=== PATIENT | female | born 1985 | race Caucasian/White ===

== ENCOUNTER 2019-04-18 05:42 | Inpatient (IN) ==
--- NOTE | 2019-04-18 06:18 | PROVIDER DOCUMENTATION ---
HPI-Abdominal Pain/GI Problem - General Chief Complaint: UTI Symptoms Stated Complaint: ADULT GENERAL Time Seen by Provider: 04/18/19 06:01 Source: patient, family Allergies/Adverse Reactions: Patient Allergies Allergy/AdvReac Type Severity Reaction Status Date / Time No Known Allergies Allergy Verified 11/25/18 09:29 Home Medications: Home Medication List Medication Instructions Recorded Confirmed Last Taken Type Hydrochlorothiazide 12.5 mg PO DAILY 11/25/18 11/25/18 Unknown History Lisinopril 20 mg PO DAILY 11/25/18 11/25/18 Unknown History - History of Present Illness-ABD Nature of Presenting Problems: laying around about a week then noted yellow pigment itchy sob weak no iv drugs lots zantac Pain Radiation: reports: no radiation Quality of Pain: reports: pressure Severity in ED: reports: mild Onset/Duration: reports: 1 week ago Timing: reports: still present, getting worse Activities at Onset: reports: none Exposure to sick contacts?: No Modifying Factors: improves with: nothing Associated Symptoms: reports: heartburn, loss of appetite. denies: constipation, cough, fever/chills, genitourinary problems, nausea, swelling/mass in abdomen, syncope, vomiting Last BM: last night Dark Stools Present?: reports: other (green). denies: maroon, black, tarry, bright red blood Rectal Bleeding: reports: none # of Vomiting Episodes: 0 Bruising or Bleeding Gums?: No Similar Symptoms Previously?: No Review of Systems - Adult - REVIEW OF SYSTEMS - ADULT Constitutional: reports: fatique. denies: chills, fever, night sweats, weight loss Eyes: reports: no symptoms reported Ears, Nose, Mouth & Throat: reports: no symptoms reported Cardiovascular: reports: no symptoms reported. denies: chest pain, edema, palpitations Respiratory: reports: shortness of breath. denies: cough, hemoptysis, wheezing Gastrointestinal: reports: frequent heartburn, nausea, poor appetite, vomiting. denies: abdominal pain, hematemesis, constipation, diarrhea, difficulty swallowing Genitourinary: reports: no symptoms reported Musculoskeletal: reports: no symptoms reported Integumentary: reports: no symptoms reported Neurological: reports: no symptoms reported Psychiatric: reports: no symptoms reported Past History - Adult - PAST MEDICAL HISTORY-ADULT Review of Records: reports: Nursing Assessment Review, Medications Reviewed, Social history reviewed & non-contributory. Cardiovascular: reports: denies history, HTN Respiratory: denies: asthma, bronchitis, COPD, sleep apnea, tuberculosis Gastrointestinal: reports: GERD. denies: cholelithiasis, Crohn's, colitis, diverticulosis, hepatitis, hemorrhoids, inflammatory bowel disease, liver disease, pancreatitis, polyps Genitourinary: reports: denies history Musculoskeletal: reports: denies history Neurological: reports: denies history Psychiatric: reports: denies history Endocrine/Immune: reports: denies history. denies: Diabetes, thyroid disorder - PRIOR SURGERIES/PROCEDURES Surgical/Procedure History: reports: , orthopedic (extremity) - IMMUNIZATION STATUS Childhood Immunizations: See Nurse Assessment Flu Vaccine: See Nurse Assessment - FAMILY HISTORY Family History: reviewed, not pertinent - SOCIAL HISTORY Smoking: cigarettes Substance Use: none/never Alcohol Use Frequency: never Physical Exam-General - PHYSICAL EXAM-ADULT Initial Vital Signs Reviewed: Yes - CONSTITUTIONAL General Appearance: mild distress - EYES Eyes: scleral icterus - HEAD, EARS, NOSE, MOUTH & THROAT HENMT: normocephalic/atraumatic - NECK Neck: full range of motion, supple - RESPIRATORY Respiratory: lungs clear - CARDIOVASCULAR Cardiovascular: regular rate, rhythm - GASTROINTESTINAL (ABDOMEN) Abdominal Exam: normal bowel sounds, non tender, soft - LYMPHATIC Lymphatic: no adenopathy - MUSCULOSKELETAL Back Exam: normal inspection, no CVA tenderness Extremity: normal range of motion, non-tender, normal gait - SKIN Integumentary: jaundice - NEUROLOGIC 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 - PSYCHIATRIC Psych/Mental Status: oriented x 3 Progress - PLAN OF CARE/RESULTS Progress/Plan/Lab Results: Vital Signs - 8 hr 04/18/19 05:50 Temperature 98.5 F Pulse Rate 95 H Respiratory Rate 20 Blood Pressure 164/109 O2 Sat by Pulse Oximetry 99 Orders Category Date Time Status Urine Preg [ED: Urine Bedside] NOW Care 04/18/19 05:57 Active URINALYSIS W/POSS RFLX CULT [URINALYSIS] Stat Lab 04/18/19 05:56 Uncollected Result Diagrams: 04/18/19 06:16 04/18/19 06:16 - ULTRASOUND (By Radiology) 1 US Study: Abdomen Impression: See EMR Report (EXAM: US ABDOMEN-COMPLETE - 04/18/2019 HISTORY: JAUNDICE TECHNIQUE: Ultrasound abdomen COMPARISON: None. FINDINGS: There are no abnormalities of the liver or spleen identified. Doppler image shows hepatopedal flow in the portal vein. There is no ascites seen. The gallbladder is contracted. The gallbladder ochoa appear thickened up to 1.4 cm, although this could be exaggerated by the contracted state. There are no gallstones identified. There is no pericholecystic fluid identified. The technologist reports negative sonographic Lindsey's sign. The common bile duct is normal caliber at 3 mm. The pancreas is partially obscured by bowel gas artifacts, but visualized portions of the pancreas are unremarkable. There are no abnormalities of the bilateral kidneys identified. Abdominal aorta and IVC appear normal caliber. IMPRESSION: Contracted gallbladder with substantially thickened ochoa. No evidence of gallstones or pericholecystic fluid. Electronically signed by Abrahan Schmidt 04/18/2019 8:25 AM) Departure - Departure Date of Disposition Decision: 04/18/19 Time of Disposition Decision: 09:20 DIAGNOSIS: Acute hepatitis, Hyperbilirubinemia Disposition: ADMITTED INPATIENT 09 Certified Medical Emergency: Emergent Condition: Fair Referrals and Follow-Ups: None,PCP [Primary Care Provider] - - Critical Care Note This patient required my direct & personal management of CC.: No Attestation - Physician/ SALENA Attestation Patient care was provided by Advanced Practice Provider:: No The physician spent face to face time with patient:: Yes Advanced Practice Provider documentation review:: Supervising physician onsite and consulted in the evaluation and care of this patient. The physician did have a face to face encounter with the patient.
[2019-04-18 07:21] LABS: AGAP 13; ALBUMIN 3.2 g/dL (3.5-5.0); ALKALINE PHOSPHATASE 420 U/L (32-104); BASO# 0.11 X1000 (0.0-0.2); BASO% 1.6 % (0.0-0.8); BUN 12 mg/dL (8-22); CALCIUM 8.8 mg/dL (8.8-10.2); CHLORIDE 101 mmol/L (98-107); COSMO 278; CREATININE 0.3 mg/dL (0.5-0.9); EOS# 0.04 X1000 (0.0-0.7); EOS% 0.6 % (0.0-10.0); ESTIMATED GFR > 60; GLUCOSE 138 mg/dL (70-104); GOT 859 U/L (10-30); HEMATOCRIT 39.8 % (37.0-47.0); HEMOGLOBIN 13.1 g/dL (12.0-16.0); IMM GRAN# 0.05 X1000 (0.0-0.04); IMM GRAN% 0.7 % (0.0-0.5); LYMPH# 2.12 X1000 (1.2-3.4); LYMPH% 30.9 % (20.5-51.1); MCH 29.4 PG (27-31); MCHC 32.9 g/dL (33-37); MCV 89.2 FL (81-99); MONO# 0.79 X1000 (0.11-0.59); MONO% 11.5 % (1.7-9.3); MPV 10.5 FL (7.4-10.4); NEUT# 3.76 X1000 (1.4-6.5); NEUT% 54.7 % (42.2-75.2); PLT 286 X1000 (130-400); POTASSIUM 3.7 mmol/L (3.5-5.1); RBC 4.46 XMIL (4.2-5.4); RDW 13.7 % (11.5-14.5); SODIUM 138 mmol/L (136-145); TCO2 24 mmol/L (25-35); TOTAL PROTEIN 7.3 g/dL (6.3-8.3); WBC 6.87 X1000 (4.8-10.8)
[2019-04-18 07:33] LABS: GPT 1546 U/L (10-36)
[2019-04-18 07:44] LABS: URINE SOURCE CLEAN CATCH
[2019-04-18 07:59] LABS: BILIRUBIN URINE LARGE (NEGATIVE); BLOOD URINE TRACE (NEGATIVE); CLARITY CLOUDY (CLEAR); COLOR AMBER; GLUCOSE URINE NEGATIVE (NEGATIVE); KETONE URINE TRACE mg/dL (NEGATIVE); PH URINE 6.5; PROTEIN URINE TRACE mg/dL (NEGATIVE); SP GRAVITY URINE 1.025; URINE BACTERIA 2+ /HFP; URINE CAST NONE SEEN /LPF; URINE CRYSTAL NONE SEEN /HPF; URINE EPITHELIAL CELLS <10 /HPF (<10); URINE WBC <10 /HPF (<10); URINE YEAST NONE SEEN /HPF
[2019-04-18 08:00] LABS: LEUKOCYTES URINE TRACE (NEGATIVE); NITRITE URINE POSITIVE (NEGATIVE)
--- NOTE | 2019-04-18 08:28 | Diag Imaging Result Doc PS360 ---
EXAM: US ABDOMEN-COMPLETE - 04/18/2019 HISTORY: JAUNDICE TECHNIQUE: Ultrasound abdomen COMPARISON: None. FINDINGS: There are no abnormalities of the liver or spleen identified. Doppler image shows hepatopedal flow in the portal vein. There is no ascites seen. The gallbladder is contracted. The gallbladder ochoa appear thickened up to 1.4 cm, although this could be exaggerated by the contracted state. There are no gallstones identified. There is no pericholecystic fluid identified. The technologist reports negative sonographic Lindsey's sign. The common bile duct is normal caliber at 3 mm. The pancreas is partially obscured by bowel gas artifacts, but visualized portions of the pancreas are unremarkable. There are no abnormalities of the bilateral kidneys identified. Abdominal aorta and IVC appear normal caliber. IMPRESSION: Contracted gallbladder with substantially thickened ochoa. No evidence of gallstones or pericholecystic fluid. Electronically signed by Abrahan Schmidt 04/18/2019 8:25 AM
[2019-04-18] MEDS ORDERED: ROCEPHIN 1 GM in NS 50 ML IV ONE (09:24)
[2019-04-18] MEDS ORDERED: NS 1,000 ML IV ONE (09:24)
[2019-04-18] MEDS ORDERED: ZOFRAN IV PRN ×2 (10:30→16:54)
[2019-04-18] MEDS ORDERED: ZOSYN 3.375 GM in NS 50 ML IV SCH (11:00)
[2019-04-18] MEDS: SODIUM CHLORIDE 0.9% INJ SCH (11:06)
[2019-04-18] MEDS: PROTONIX IV SCH (11:06)
[2019-04-18] MEDS: NS 1,000 ML IV SCH (11:06)
--- NOTE | 2019-04-18 11:36 | HISTORY AND PHYSICAL ---
PRIMARY CARE PHYSICIAN: None. CHIEF COMPLAINT: Weakness. HISTORY OF PRESENT ILLNESS: Ms. Yousif is a 33-year-old, female with past medical history of hypertension and tobacco dependency. The patient does present to the ER today with complaints of weakness, jaundice, pruritus, petechiae, nausea with a vomiting episode x1, jaundiced urine, and heartburn, where she has been having to take Tums and Zantac for the past 5 days. The patient stated that when she noticed that her pupils were very jaundiced, her decided to bring her to the ER at this time. Laboratory findings in the ER did show the patient to have a bilirubin of 10, AST 859, ALT of 1546, alkaline phosphatase of 420. Ultrasound of the gallbladder did show gallbladder wall thickened up to 1.4 cm with no apparent gallstones, no abnormalities of the liver, and no ascites. The patient does deny any fever, chills, or flu-like symptoms, cough, congestion, headache or vision changes, dizziness, neck pain, stiffness, excessive thirst, chest pain, palpitations, orthopnea, PND, leg edema, dyspnea, melena, hematemesis, diarrhea, constipation, dysuria, hematuria, syncope, numbness, or any other pertinent symptoms at this time. REVIEW OF SYSTEMS: A 10-point review of systems has been obtained, and all are negative, except what is stated above in the HPI. PAST MEDICAL HISTORY: 1. Hypertension. The patient is supposed to be taking lisinopril and hydrochlorothiazide. However, she states she has not taken any medication in the past 3 months. 2. Tobacco dependency. PAST SURGICAL HISTORY: 1. Carpal tunnel release x2. 2. Tonsillectomy. 3. Elbow surgery x2. 4. Left ankle surgery. 5. Three sections. FAMILY HISTORY: Father has diabetes and hypertension. Her mother has hypertension and a history of uterine cancer. She also has a sister that has hypertension. SOCIAL HISTORY: The patient does live in [place] with her and her 3 children. She does work as a business studio owner. She does smoke a half a pack of cigarettes per day, and she has for greater than 15 years. She denies any alcohol or illicit drug use. ALLERGIES: No known drug allergies. HOME MEDICATIONS: The patient is supposed to take lisinopril 10 mg daily and hydrochlorothiazide 12.5 mg daily. However, she has not taken any medications in greater than 2 months. PHYSICAL EXAMINATION: VITAL SIGNS: Temperature 97.9 degrees, pulse rate 70, respiratory rate 18, blood pressure 159/93, O2 saturation 100% on room air. GENERAL: This is a 33-year-old, female. She is lying in the ER stretcher. She is well nourished and well developed, in no acute distress. HEENT: Atraumatic, normocephalic. Pupils are jaundiced. They are equal and reactive to light. Mucous membranes are dry. NECK: Supple. No lymphadenopathy. Trachea is midline. There is no JVD. CARDIOVASCULAR: Regular rate and rhythm. No murmurs, gallops, or rubs appreciated. RESPIRATORY: Lung sounds are clear with equal chest excursion. Respirations are nonlabored. No accessory muscle usage. GI: Abdomen is soft. It is nontender, nondistended. Bowel sounds are present x4. Lindsey sign is negative. : There is no suprapubic tenderness noted. The patient is able to void without difficulty. NEUROLOGIC: The patient is awake, alert, and oriented x4. There are no deficits noted. MUSCULOSKELETAL: There is full distal strength noted. No abnormalities. No deformities. EXTREMITIES: No clubbing, no cyanosis, no edema. DP and PT pulses are present. SKIN: Warm, dry, and intact. There is petechiae noted all over the abdominal area and extremities. The patient is jaundiced all over, especially to the orbits. There is no bruising and no diaphoresis. LABORATORY AND DIAGNOSTIC DATA: White blood cell count 6.87, hemoglobin 13.1, hematocrit 39.8, platelet count 286,000. Sodium 138, potassium 3.7, BUN is 12, creatinine is 0.3, glucose is 138, calcium is 8.8. Total bilirubin is 10, AST is 859, ALT is 1546, alkaline phosphatase is 420. Plasma lactate is 1.2. Urinalysis does show protein, positive ketones, positive nitrates, a large amount of bilirubin. The microscopic does show red blood cells, white blood cells, positive bacteria 2+. Ultrasound of the abdomen does show gallbladder ochoa are thickened up to 1.4 cm. There are no gallstones identified. It does show a negative Lindsey sign. The common bile duct is normal caliber at 3 mm. It cannot identify the pancreas. It shows no abnormalities of the liver or spleen identified. ASSESSMENT: 1. Acute cholecystitis. 2. Transaminitis. 3. Hyperbilirubinemia. 4. Urinary tract infection. 5. Gastroesophageal reflux disease. 6. Hypertension. PLAN: Will admit this patient to the surgical floor. We will consult Surgery. We will start this patient on IV fluid hydration, normal saline at 75. We will start this patient on Zosyn. Will place this patient on nuclear monitoring technician. Keep this patient n.p.o. at this present time. Do vital signs routine. Supplemental O2. We will provide this patient with Zofran p.r.n. for antiemetics. Will start this patient on Protonix 40 mg IV every 24 hours. I will provide her with a nicotine patch daily. I have provided her with smoking cessation information. I will provide her with SCDs for DVT prophylaxis. I have ordered a hepatitis profile. I have ordered labs for in the morning. Urine culture and blood cultures have been obtained. We will await those results. All other further treatment pending hospital course and laboratory data. Dictated by SAMMY Robb for Rusty Thomas MD cc: Rusty Thomas MD MTDD
[2019-04-18] MEDS: NICODERM PATCH TD SCH (13:57)
[2019-04-18] MEDS ORDERED: DEMEROL IV ONE (15:44)
--- NOTE | 2019-04-18 17:24 | PROGRESS NOTE ---
DATE: 04/18/2019 SUBJECTIVE: I have seen and examined Ms. Yousif today. Ms. Yousif presented is a transfer from [place]. She went over there early today because of generalized weakness and fatigue. She was found to be extremely jaundiced at home so she went there for evaluation. She was seen and evaluated and transferred over here for higher level of care. OBJECTIVE: Vital signs: Blood pressure is 146/85, pulse of 76,respirations 16, temperature is 97.8 degrees. General: Ms. Yousif is a 34-year-old female. She is in bed in no distress. Mucosa is pink and moist. About 2 to 3+ icterus. Chest: Clear to auscultation. No crepitations. No rhonchi. Cardiovascular: Regular rate and rhythm. Gastrointestinal: Abdomen is soft, nontender. Bowel sounds present. Extremities: No pedal edema. PATENT EXAMINER: Patient is awake, alert, and oriented. Skin: Patient has multiple tattoos all over. LABORATORY DATA: CBC is completely within normal range. Chemistry also shows liver enzymes extremely elevated with ALT 1546. The ultrasound of the abdomen has been reviewed. ASSESSMENT: 1. Acute hepatocellular injury pattern concerning for a viral hepatitis. The patient's hepatitis panel has already been done. We will be pending the results. For now, we will continue to monitor and manage symptomatic. 2. Generalized weakness and fatigue most likely due to underlying acute hepatitis. 3. Contracted gallbladder on ultrasound. The patient denies any pain in the right upper quadrant WBC is fine. I do not think she has any acute cholecystitis. I have discontinued the antibiotics. cc: Kilo Altman MD
--- NOTE | 2019-04-18 19:11 | GENERAL SURGERY CONSULTATION ---
DATE: 04/18/2019 REQUESTING PRACTITIONER: SAMMY Robb CONSULTING SURGEON: Partha Akins MD REASON FOR CONSULTATION: Acute cholecystitis. HISTORY OF PRESENT ILLNESS: This is a 33-year-old female who presented to the hospital with a chief complaint of jaundice and weakness. The symptoms began several days ago without any abdominal pain, diarrhea or constipation, fever, weight loss, appetite change. She does have significant heartburn over the last few days and has had one episode of nausea and vomiting. She has never had any prior episodes like this. She denies any sick contacts, or travel out of the country. She denies any exposure to IV drug use. PAST MEDICAL HISTORY: Hypertension. HOME MEDICATIONS: She is currently not taking any but previously took lisinopril. PAST SURGICAL HISTORY: Reviewed and pertinent for sections. ALLERGIES: No known drug allergies. FAMILY HISTORY: Reviewed and notable for uterine cancer in her mother. SOCIAL HISTORY: She smokes several cigarettes. Denies alcohol or illicit drug use. REVIEW OF SYSTEMS: Positive for itching. Otherwise, 10 systems reviewed and negative except as noted above. PHYSICAL EXAMINATION: Vital Signs: Temperature 97.8 degrees, pulse 76, respirations 16, blood pressure 146/85, O2 saturation 100%. General: Well-developed, well-nourished male who appears somewhat ill but nontoxic. HEENT: Normocephalic, atraumatic. Extraocular muscles intact. Pupils equal, round, reactive to light. She does have scleral icterus. Mucous membranes look somewhat dry. Neck: Supple. No thyromegaly. Cardiovascular: Regular rate and rhythm. Respiratory: Bilateral equal breath sounds. No work of breathing. Gastrointestinal: Soft, nondistended. No organomegaly or mass. She is mildly tender in the right upper quadrant without rebound or guarding. She has a negative Lindsey sign. Extremities: No clubbing, cyanosis, or edema. Skin: Warm and dry. She is jaundiced. LABORATORY DATA: CBC and metabolic profile are reviewed and notable for total bilirubin of 10, AST 859, ALT 1546, alkaline phosphatase 420. IMAGING: An abdominal ultrasound shows a contracted gallbladder with wall thickening up to 1.4 cm; however, no gallstones, no pericholecystic fluid and a negative Lindsey sign. The common bile duct is also normal at 3 mm. ASSESSMENT AND PLAN: A 33-year-old female with painless jaundice, weakness and abnormal gallbladder imaging. Overall, I am most suspicious of viral hepatitis. This panel has been ordered and is pending. I do not believe she has acute cholecystitis given her history and physical exam findings. We will follow along. If the hepatitis panel is negative, then we would likely pursue other hepatobiliary and pancreatic imaging. cc: Partha Akins MD
[2019-04-18] MEDS: DEMEROL IV PRN (21:42)
[2019-04-19] MEDS: DEMEROL IV PRN ×3 (03:56→21:22)
[2019-04-19] MEDS: NS 1,000 ML IV SCH ×2 (04:12→14:30)
[2019-04-19 07:25] LABS: INR 0.98; PROTIME 13.1 Seconds (11.0-16.0)
[2019-04-19 07:31] LABS: BASO# 0.06 X1000 (0.0-0.2); BASO% 1.1 % (0.0-0.8); EOS# 0.14 X1000 (0.0-0.7); EOS% 2.6 % (0.0-10.0); HEMATOCRIT 36.1 % (37.0-47.0); HEMOGLOBIN 11.7 g/dL (12.0-16.0); IMM GRAN# 0.03 X1000 (0.0-0.04); IMM GRAN% 0.6 % (0.0-0.5); LYMPH% 37.3 % (20.5-51.1); MCH 28.9 PG (27-31); MCHC 32.4 g/dL (33-37); MCV 89.1 FL (81-99); MONO# 0.68 X1000 (0.11-0.59); MONO% 12.7 % (1.7-9.3); MPV 10.3 FL (7.4-10.4); NEUT# 2.45 X1000 (1.4-6.5); NEUT% 45.7 % (42.2-75.2); PLT 230 X1000 (130-400); RBC 4.05 XMIL (4.2-5.4); RDW 13.9 % (11.5-14.5); WBC 5.36 X1000 (4.8-10.8)
[2019-04-19 07:51] LABS: EOS 4 % (1-10); LYMPHS 32 % (21-51); SEGS 62 % (42-75)
[2019-04-19 07:59] LABS: AGAP 7; ALB/GLOB RATIO 0.7; ALBUMIN 2.6 g/dL (3.5-5.0); ALKALINE PHOSPHATASE 365 U/L (32-104); BUN 8 mg/dL (8-22); CALCIUM 7.7 mg/dL (8.8-10.2); CHLORIDE 105 mmol/L (98-107); COSMO 271; CREATININE 0.6 mg/dL (0.5-0.9); ESTIMATED GFR > 60; GLUCOSE 105 mg/dL (70-104); GOT 455 U/L (10-30); MAGNESIUM 1.9 mg/dL (1.5-2.7); POTASSIUM 3.6 mmol/L (3.5-5.1); SODIUM 136 mmol/L (136-145); TCO2 24 mmol/L (25-35); TOTAL BILIRUBIN 6.64 mg/dL (0.20-1.00); TOTAL PROTEIN 6.1 g/dL (6.3-8.3)
[2019-04-19 08:19] LABS: GPT 942 U/L (10-36)
[2019-04-19] MEDS: SODIUM CHLORIDE 0.9% INJ SCH (08:58)
[2019-04-19] MEDS: PROTONIX IV SCH ×2 (08:58→18:56)
[2019-04-19] MEDS: NICODERM PATCH TD SCH (08:59)
--- NOTE | 2019-04-19 11:05 | GENERAL SURGERY PROGRESS NOTE ---
DATE: 04/19/2019 SUBJECTIVE: The patient again denies abdominal pain or nausea. OBJECTIVE: She is afebrile. Vital signs are stable.General: She is awake, alert, no acute distress. SKIN: She remains jaundiced.Gastrointestinal: Soft, nontender. LABORATORY: White blood cell count 5.3, total bilirubin 6.6, AST 455, ALT 942, alkaline phosphatase 365. Hepatitis profile is pending. ASSESSMENT AND PLAN: A 33-year-old female with significantly elevated liver function tests including hyperbilirubinemia causing jaundice. Etiology is unclear. Hepatitis panel is pending. At this point I do not think she has acute cholecystitis. We will follow along as needed. cc: Partha Akins MD
--- NOTE | 2019-04-19 13:44 | HISTORY AND PHYSICAL ---
ADDENDUM: Patient seen and examined by myself. Full note dictated and discussed with nurse practitioner. Patient presented to the hospital after 3-day history of nausea, vomiting, abdominal pain. States she is fatigued, unable to do anything. She has been lying around [*] Laboratory data as mentioned [*] to the hospital. [*]keep her NPO. cc: Rusty Thomas MD
[2019-04-19 14:38] LABS: HEPATITIS PROFILE ACUTE SEE COMMENTS
--- NOTE | 2019-04-19 15:08 | PROGRESS NOTE ---
DATE: 04/19/2019 I have seen and examined Ms. Yousif today, Mr. Yousif refers to be doing fair. No new complaints. OBJECTIVE: Vital signs: Blood pressure is 162/93, pulse of 82, respiration is 20, temperature is 98.1 degrees. General: Ms. Yousif 33-year-old female she is in bed no distress. Mucosa is pink and moist is positive icteric. Chest: Clear to auscultation. No crepitations, no rhonchi. Cardiovascular: Regular rate and rhythm. No murmurs, no rubs, no gallops. Abdomen: Soft, nontender. Bowel sound is present. There is no hepatosplenomegaly. Extremities: No pedal edema. MARKETING FINANCIAL ANALYST: Patient is awake, alert and oriented. Skin: Multiple tattoos all over. LABORATORY DATA: WBC is 5.36, hemoglobin is 11.7, platelet count of 230,000. Chemistry is also reviewed. Total bilirubin is down to 6.64, AST is 455, ALT is down to 943, alkaline phosphatase is down to 365. Lab hepatitis serology showing IgM positive for hepatitis A. ASSESSMENT: 1. Acute hepatocellular injury due to acute hepatitis A. Will continue with symptomatic management. 2. Generalized weakness and fatigue secondary to acute hepatitis A. 3. Contracted gallbladder found on ultrasound. So in general I think Ms. Yousif is doing well. The liver enzymes are trending down. We just got a hepatitis panel and is positive for acute hepatitis A. For now going to continue with symptomatic management. cc: Kilo Altman MD MTDD
[2019-04-20] MEDS: DEMEROL IV PRN (02:54)
[2019-04-20] MEDS: NS 1,000 ML IV SCH (02:54)
[2019-04-20 08:42] LABS: AGAP 10; ALB/GLOB RATIO 0.6; ALBUMIN 2.5 g/dL (3.5-5.0); ALKALINE PHOSPHATASE 358 U/L (32-104); BUN 10 mg/dL (8-22); CALCIUM 8.1 mg/dL (8.8-10.2); CHLORIDE 104 mmol/L (98-107); COSMO 272; CREATININE 0.5 mg/dL (0.5-0.9); ESTIMATED GFR > 60; GLUCOSE 83 mg/dL (70-104); GOT 334 U/L (10-30); GPT 726 U/L (10-36); POTASSIUM 3.8 mmol/L (3.5-5.1); SODIUM 137 mmol/L (136-145); TCO2 23 mmol/L (25-35); TOTAL BILIRUBIN 5.07 mg/dL (0.20-1.00); TOTAL PROTEIN 6.4 g/dL (6.3-8.3)
[2019-04-20] MEDS: NICODERM PATCH TD SCH (09:19)
--- NOTE | 2019-04-20 10:04 | DISCHARGE SUMMARY ---
ADMISSION DATE: 04/18/2019 DISCHARGE DATE: 04/20/2019 DISPOSITION: Home. FOLLOWUP: 1. Dr. Akins. 2. Dr. Puentes. CONSULTATION DURING THIS ADMISSION: Surgery was consulted, patient was seen by Dr. Akins. INVASIVE PROCEDURES DONE DURING THIS ADMISSION: None. IMAGING STUDIES OF SIGNIFICANCE: Ultrasound of the abdomen did show contracted gallbladder with substantially thickened ochoa. No evidence of gallstones or pericholecystic fluid. ADMISSION DIAGNOSES: 1. Acute cholecystitis. 2. Transaminitis. 3. Hyperbilirubinemia. 4. Gastroesophageal reflux disease. 5. Hypertension. DIAGNOSES AT THE TIME OF DISCHARGE: 1. Acute hepatocellular injury secondary to acute hepatitis A. 2. Generalized weakness and fatigue secondary to acute hepatitis A. 3. Contracted gallbladder found on ultrasound. No signs of cholecystitis. 4. Hypertension. 5. Obesity with body mass index of 33.3. PRESENTING COMPLAINT: Weakness. HISTORY OF PRESENTING COMPLAINT: Ms. Yousif is a 33-year-old female, who has high blood pressure issues but is not very compliant with medication, came to the emergency room because of about 2 week history of generalized weakness, excessive sleeping, fatigue. A couple days prior to coming in, she was noted to be jaundiced. Upon presentation, she was evaluated in [place] and transferred to [facility] for higher level of care. HOSPITAL COURSE: During the hospital course, Ms. Yousif was evaluated by Surgery and I discussed the case with Dr. Akins, who did not think that Ms. Yousif at that time had any gallbladder disease, which I agree with him. Ms. Yousif was conservatively managed with fluids, pain management, and her serology came back positive for acute hepatitis A. She has been advised to get all her family members and close contacts to get a hepatitis A vaccine. This morning Ms. Yousif is referred to be feeling a whole lot better, not as weak as before. Laboratory data shows that the AST and ALT are trending down. The patient's appetite is now back. She is eating more. We think she is fairly stable to be discharged. She is going to follow up with Dr. Akins at a later date to make sure the gallbladder is fine. She will also follow up with Dr. Puentes on the hepatitis. All the discharge instructions have been discussed with her. She voiced understanding. The was at the bedside at the time of the encounter. He has also been advised to be evaluated by his primary care doctor and decide on hepatitis A vaccine and/or the immunoglobulin treatment. cc: Kilo Altman MD
[2019-04-20 11:21] VITALS: BP 156/91
== END 2019-04-20 11:34 | disposition home or self-care (01) | DRG 442 ==
LOC: P.ED 05:42 → 4N 12:00 → SUATTDRO 12:00
PROVIDERS: ATTEND Internal Medicine